=== PATIENT | male | born 2000 | race Caucasian/White ===

== ENCOUNTER 2018-01-05 22:53 | Emergency (ER) | payer OTHER ==
[2018-01-05] MEDS ORDERED: Naproxen TAB* 250 MG PO ONE (23:27)
[2018-01-05] MEDS ORDERED: Cyclobenzaprine TAB* 10 MG PO ONE (23:27)
[2018-01-06 00:20] VITALS: BP 119/63
--- NOTE | 2018-01-06 02:48 | ED ---
Neck Pain - HPI Summary HPI Summary: Pt. is a 17 y.o male who presents to the ER for left lateral neck pain that started today at work. Pt. states he works at [employer] and when moving computers when he developed pain and spasming to his left lateral neck. Pain is worse with rotation of head to the left. Admits to intermittent tingling in hand that is positional. Symptoms are mild in severity. No past medical history. - History of Current Complaint Chief Complaint: EDNeckComplaint Stated Complaint: NECK INJURY Time Seen by Provider: 01/05/18 23:22 Hx Obtained From: Patient Onset/Duration Of Injury/Symptoms: Hours Mechanism Of Injury: Other - Heavy lifting Onset/Duration: Started hours ago Severity Initially: Mild Severity Currently: Moderate Pain Intensity: 3 Pain Scale Used: 0-10 Numeric Character: Spasmotic Aggravating Factors: Position, Movement Alleviating Factors: Position Associated Signs & Symptoms: Positive: Paresthesia. Negative: Swelling, Redness , Bruising, Fever, Nuchal Rigity, Weakness, Headache - Risk Factors Meningitis Risk Factors: Negative - Allergies/Home Medications Allergies/Adverse Reactions: Allergies Allergy/AdvReac Type Severity Reaction Status Date / Time MS Shellfish Allergy Allergy Vomiting Verified 01/06/18 00:01 [Shellfish Allergy] PMH/Surg Hx/FS Hx/Imm Hx Previously Healthy: Yes Respiratory History: Reports: Hx Asthma - as young child Infectious Disease History: No Infectious Disease History: Denies: Hx Clostridium Difficile, Hx Hepatitis, Hx Human Immunodeficiency Virus (HIV), Hx of Known/Suspected MRSA, Hx Shingles, Hx Tuberculosis, Hx Known/ Suspected VRE, Hx Known/Suspected VRSA, History Other Infectious Disease, Traveled Outside the in Last 30 Days - Family History Known Family History: Positive: Hypertension - Social History Occupation: Employed Full-time Lives: With Family Alcohol Use: None Substance Use Type: Reports: None Smoking Status (MU): Never Smoked Tobacco Review of Systems Constitutional: Negative Negative: Fever Eyes: Negative Positive: Other - Pain and spasming to left side of neck Positive: Paresthesia - Intermittent tingling in left hand Psychological: Normal All Other Systems Reviewed And Are Negative: Yes Physical Exam Triage Information Reviewed: Yes Vital Signs On Initial Exam: Initial Vitals Temp Pulse Resp BP Pulse Ox 98.9 F 72 16 142/63 100 01/05/18 22:54 01/05/18 22:54 04/12/18 22:54 01/05/18 22:54 01/05/18 22:54 Vital Signs Reviewed: Yes Appearance: Positive: Well-Appearing - Pt. sitting on bed in NAD. Signficant other present. Skin: Positive: Warm, Dry Head/Face: Positive: Normal Head/Face Inspection Eyes: Positive: Normal Neck: Positive: Supple, Other: - No midline tenderness. Pain and tightness to the left trapezius muscle. Limited ROM of neck to the left.. Negative: Nuchal Rigidity Musculoskeletal: Positive: Normal, Other - 5/5 strength in bilateral UEs without neurosensory deficits. Diagnostics - Vital Signs Vital Signs Temp Pulse Resp BP Pulse Ox 01/06/18 00:19 98.2 F 74 18 119/63 99 01/05/18 22:54 98.9 F 72 16 142/63 100 - Laboratory Lab Statement: Any lab studies that have been ordered have been reviewed, and results considered in the medical decision making process. Neck Course/Dx - Course Course Of Treatment: Pt. presenting with left side neck pain and spasming. He has no midline tenderness or neurodeficits on exam. Will treat with flexeril and naproxen, dose given in the ER and rx. Advised warm compresses and gentle massage. Work excuse given. To return to ER if symptoms change or worsen. Pt. understands and agrees with plan. - Diagnoses Differential Dx/HQI/PQRI: Positive: Sprain, Strain, Torticollis Provider Diagnoses: Muscle spasm Discharge - Sign-Out/Discharge Documenting (check all that apply): Discharge - Discharge Plan Condition: Good Disposition: HOME Prescriptions: Cyclobenzaprine TAB* [Flexeril 10 MG TAB*] 5 mg PO TID PRN 3 Days #9 tab PRN Reason: Pain Naproxen TAB* [Naprosyn 250 mg TAB*] 500 mg PO Q12H PRN #20 tab PRN Reason: Pain Patient Education Materials: Spasmodic Torticollis (ED), Muscle Spasm (ED) Forms: *Work Release Referrals: Betzaida Diamond MD [Primary Care Provider] - Additional Instructions: Take medication as directed Follow up with PCP Apply heat to neck intermittently Gentle massage Return to ER if symptoms change or worsen - Billing Disposition and Condition Condition: GOOD Disposition: HOME
== END 2018-01-06 00:19 | disposition home or self-care (01) ==
LOC: ED 22:53
DX: R25.2 Cramp and spasm (principal); M54.2 Cervicalgia; R20.0 Anesthesia of skin
CPT/HCPCS: 99282; A9270-GY

== ENCOUNTER 2018-07-03 19:36 | Emergency (ER) | payer SELFPAY ==
[2018-07-03 19:42] VITALS: BP 138/81
--- NOTE | 2018-07-03 20:06 | UC ---
Skin Complaint HPI - HPI Summary HPI Summary: 17 y/o male presents to the urgent c/o Rt axilla tick bite which he removed yesterday. Pt woke up this morning w/ myalgias, fatigue and joint pains. Pain 3/ 10. Pt denies fever, rash, MARCELO, chest pain, palpitations, SOB, chest pain, dizziness, abdominal pain, N/v/d. Pt took Ibuprofen 600mg PO at 1200N to alleviate symptoms. - History of Current Complaint Chief Complaint: UCSkin Time Seen by Provider: 07/03/18 20:05 Stated Complaint: TICK BITE Hx Obtained From: Patient Onset/Duration: Sudden Onset, Lasting Days - 1 day, Resolved - by tick removal Skin Exposure Onset/Duration: Days Ago - 1 day Timing: Constant Onset Severity: Mild Current Severity: Mild Pain Intensity: 4 Pain Scale Used: 0-10 Numeric Location: Generalized - fatigue and myalgias, Other - tick bite on Rt axilla Character: Redness - discrete Aggravating Factor(s): Touch Alleviating Factor(s): OTC Meds - ibuprofen at 1200N Associated Signs & Symptoms: Positive: Rash - tick bite. Negative: Fever, Chills, Drainage, Tenderness Related History: Possible Reaction to: Insect - Allergy/Home Medications Allergies/Adverse Reactions: Allergies Allergy/AdvReac Type Severity Reaction Status Date / Time shellfish derived Allergy Vomiting Verified 07/03/18 19:43 Home Medications: Home Medications NK [No Home Medications Reported] 07/03/18 [History Confirmed 07/03/18] Review of Systems Constitutional: Negative Skin: Other - tick bite on Rt axilla Eyes: Negative ENT: Negative Respiratory: Negative Cardiovascular: Negative Gastrointestinal: Negative Genitourinary: Negative Motor: Negative Neurovascular: Negative Musculoskeletal: Arthralgia, Myalgia Neurological: Negative Psychological: Negative Is Patient Immunocompromised?: No All Other Systems Reviewed And Are Negative: Yes PMH/Surg Hx/FS Hx/Imm Hx Previously Healthy: Yes Respiratory History: Asthma - Surgical History Surgical History: None - Family History Known Family History: Positive: Hypertension - Social History Occupation: Student Lives: With Family Alcohol Use: None Substance Use Type: None Smoking Status (MU): Never Smoked Tobacco - Immunization History Vaccination Up to Date: Yes Physical Exam - Summary Physical Exam Summary: Vital Signs Reviewed: Yes General: well developed, well nourished male sitting in the examining table w/o any apparent distress. Eyes: Positive: Conjunctiva Clear - PERRLA, EOMI ENT: Positive: Normal ENT inspection, Hearing grossly normal, Pharynx normal, TMs normal Neck: Positive: Supple, Nontender, No Lymphadenopathy Respiratory: Positive: Chest nontender, Lungs clear, Normal breath sounds Cardiovascular: Positive: RRR, No Murmur, Pulses Normal Abdomen Description: Positive: Nontender, No Organomegaly, Soft. Negative: CVA Tenderness (R), CVA Tenderness (L) Bowel Sounds: Positive: Present Musculoskeletal: Positive: Strength Intact, ROM Intact, No Edema Neurological Exam: Normal Psychological Exam: Normal Skin: Positive: rashes - RT axilla with tick bite with surrounding discrete erythema, non tender to palpation. tick no longer present, no swelling or drainage observed. Triage Information Reviewed: Yes Vital Signs: Initial Vital Signs Temp 98.0 F 07/03/18 19:40 Pulse 86 07/03/18 19:40 Resp 12 07/03/18 19:40 BP 138/81 07/03/18 19:40 Pulse Ox 100 07/03/18 19:40 Course/Dx - Course Course Of Treatment: 17 y/o male presents to the urgent c/o Rt axilla tick bite which he removed yesterday. Pt woke up this morning w/ myalgias, fatigue and joint pains. Pain 3/10. Pt denies fever, rash, MARCELO, chest pain, palpitations, SOB , chest pain, dizziness, abdominal pain, N/v/d. Pt took Ibuprofen 600mg PO at 1200N to alleviate symptoms. Hx obtained. Pt w/ RT axilla with tick bite with surrounding discrete erythema, non tender to palpation. tick no longer present, no swelling or drainage observed on examination. Antibiotic prophylaxis with Doxycycline PO given to the patient to prevent lyme Disease.. Pt tolerated well medication. Pt advised to observe the area for the development or Erythema Migrans for upto 30 days following exposure. Advised if he develops fever or erythema Migrans to return to the clinic or PCP for further treatment .Pt understood and agreed with plan of care. - Differential Diagnoses - Skin Complaint Differential Diagnoses: Local Allergic Reaction, Tick Born Illness, Urticaria, Other - insect bite, bee sting - Diagnoses Provider Diagnoses: 1- Rt axilla tick bite Discharge - Sign-Out/Discharge Documenting (check all that apply): Patient Departure - D/c home All imaging exams completed and their final reports reviewed: No Studies - Discharge Plan Condition: Stable Disposition: HOME Patient Education Materials: Tick Bite (ED) Referrals: Betzaida Diamond MD [Primary Care Provider] - 2 Weeks Additional Instructions: 1- Please observe the area for the development or Erythema Migrans for upto 30 days following exposure. Components of the tick saliva can cause transient erythema that should not be confused with Erythema Migrans. If you develop the bull's eye rash, fever, joint pains please return to the urgent care or f/u with your PCP for further management. 2-Antibiotic prophylaxis with Doxycycline was given to you today to prevent lyme Disease. Lyme serology can be drawn in 2 weeks with your PCP or Infectious Disease Dr Parsons to r/o Lyme disease since there is probability of negative results at early exposure. - Billing Disposition and Condition Condition: STABLE Disposition: Home - Attestation Statements Provider Attestation: Per institutional requirements, I have reviewed the chart, however, I was not consulted specifically or made aware of this patient by the midlevel provider. I did not personally evaluate, interact with , or disposition this patient.
[2018-07-03] MEDS ORDERED: DOXYcycline CAP(*) 100 MG PO ONE (20:27)
== END 2018-07-03 20:35 | disposition home or self-care (01) ==
LOC: UCEAST 19:36
DX: T63.481A Toxic effect of venom of other arthropod, accidental (unintentional), initial encounter (principal); Y92.9 Unspecified place or not applicable
CPT/HCPCS: 99212; A9270-GY; G0463